=== PATIENT | female | born 1960 | race Caucasian/White ===

== ENCOUNTER 2017-07-07 12:05 | Emergency (ER) | payer OTHER ==
[~2017-07-07] VITALS: Ht 154.9 cm; Wt 98.4 kg
[2017-07-07 12:09] VITALS: BP_SYST 138
[2017-07-07] MEDS ORDERED: SITA100T7 PO (12:27)
[2017-07-07] MEDS ORDERED: DEXL60CA3 PO (12:27)
[2017-07-07] MEDS ORDERED: CLOP75TA2 PO (12:27)
[2017-07-07] MEDS ORDERED: ROSU40TA PO (12:27)
[2017-07-07] MEDS ORDERED: LORA10TA7 PO (12:27)
[2017-07-07] MEDS ORDERED: METF-510 PO (12:27)
[2017-07-07] MEDS ORDERED: ESCI20TA PO (12:27)
[2017-07-07] MEDS ORDERED: LISI-600 PO (12:27)
[2017-07-07] MEDS ORDERED: AMIT100T2 PO (12:27)
[2017-07-07] MEDS ORDERED: GABA-531 PO (12:27)
[2017-07-07] MEDS ORDERED: IMI50 PO (12:27)
[2017-07-07] MEDS ORDERED: OXYB5TAB11 PO (12:27)
[2017-07-07] MEDS ORDERED: NIFE60TA7 PO (12:27)
[2017-07-07] MEDS ORDERED: BUSP10TA3 PO (12:27)
[2017-07-07] MEDS ORDERED: IBUP-1480 PO (12:27)
[2017-07-07] MEDS ORDERED: ASPI-862 PO (12:27)
[2017-07-07] MEDS ORDERED: MORPHINE 4 MG/ML INJ. SYRINGE IVP ONE (13:00)
[2017-07-07 13:11] LABS: BASOPHILS # (AUTO) 0.1 K/uL (0.0-0.2); BASOPHILS % (AUTO) 0.8 % (0.0-2.0); EOSINOPHILS # (AUTO) 0.7 K/uL (0.0-0.4); EOSINOPHILS % (AUTO) 5.7 % (0.0-4.0); HEMATOCRIT 33.9 % (36-48); HEMOGLOBIN 11.1 g/dL (12.0-16.0); LYMPHOCYTES # (AUTO) 3.8 K/uL (1.0-5.5); LYMPHOCYTES % (AUTO) 32.1 % (20.5-51.5); MEAN CORPUSCULAR HEMOGLOBIN 27 pg (27-31); MEAN CORPUSCULAR HGB CONC 33 % (32-36); MEAN CORPUSCULAR VOLUME 82 fL (79.0-98.0); MONOCYTES # (AUTO) 0.8 K/uL (0.0-1.0); MONOCYTES % (AUTO) 6.7 % (1.7-9.3); NEUTROPHILS # (AUTO) 6.5 K/uL (1.8-7.7); NEUTROPHILS % (AUTO) 54.7 % (40.0-70.0); PLATELET COUNT (AUTO) 400 K/uL (130-430); RED BLOOD CELL COUNT(AUTO) 4.15 MIL/uL (4.2-6.2); RED CELL DISTRIBUTION WIDTH 14.4 % (9.0-15.0)
[2017-07-07 13:13] LABS: WHITE BLOOD COUNT (AUTO) 11.9 K/uL (4.8-10.8)
[2017-07-07 13:16] LABS: CALCIUM 9.5 mg/dL (8.4-11.0); CREATININE 0.88 mg/dL (0.55-1.30); POTASSIUM 3.6 mmol/L (3.5-5.1)
[2017-07-07 13:18] VITALS: BP_SYST 138
[2017-07-07 13:19] LABS: PROTHROMBIN TIME 10.6 SECS (9.5-12.5)
[2017-07-07 13:29] LABS: ALBUMIN 3.5 g/dL (3.4-4.8); TOTAL BILIRUBIN 0.2 mg/dL (0.0-1.0); TOTAL PROTEIN, SERUM 6.9 g/dL (6.4-8.3)
== END 2017-07-07 13:18 | disposition short-term general hospital (02) ==
LOC: SED 12:05
DX: I63.9 Cerebral infarction, unspecified (principal); R51 Headache; E11.9 Type 2 diabetes mellitus without complications; I10 Essential (primary) hypertension; Z91.012 Allergy to eggs; Z91.040 Latex allergy status; Z79.82 Long term (current) use of aspirin; Z79.84 Long term (current) use of oral hypoglycemic drugs; Z79.899 Other long term (current) drug therapy
CPT/HCPCS: 36415; 70450; 71010; 80053; 82550; 84484; 85025; 85610; 85730; 93005; 96374; 99285; J2270

== ENCOUNTER 2018-06-08 10:28 | Emergency (ER) | payer OTHER ==
[~2018-06-08] VITALS: Ht 162.6 cm; Wt 95.3 kg
[~2018-06-08 10:28] MED LIST: AMIT100T2 PO; ASPI-862 PO; BUSP10TA3 PO; CLOP75TA2 PO; DEXL60CA3 PO; ESCI20TA PO; GABA-531 PO; IBUP-1480 PO; IMI50 PO; LISI-600 PO; LORA10TA7 PO; METF-510 PO; NIFE60TA7 PO; OXYB5TAB11 PO; ROSU40TA PO; SITA100T7 PO
[2018-06-08 10:40] VITALS: BP_SYST 124
[2018-06-08] MEDS ORDERED: NACL 0.9% 1,000 ML IV ONE (11:02)
[2018-06-08] MEDS ORDERED: KETOROLAC TROMETHAMINE 30 MG VIAL IVP ONE (11:15)
[2018-06-08] MEDS ORDERED: IPRATROPIUM BROM 0.5 MG/2.5 ML VIAL.NEB (ATROVENT) IH ONE (11:15)
[2018-06-08] MEDS ORDERED: PREDNISONE 20 MG TABLET PO ONE (11:15)
[2018-06-08] MEDS ORDERED: ALBUTEROL SULFATE 0.083% 2.5 MG/3 ML VIAL.NEB IH ONE (11:15)
[2018-06-08 11:30] LABS: BILIRUBIN,URINE NEGATIVE (NEGATIVE); BLOOD, URINE 2+ (NEGATIVE); CLARITY/URINE SL HAZY (CLEAR); COLOR,URINE YELLOW (YELLOW); GLUCOSE,URINE NEGATIVE (NEGATIVE); KETONES,URINE NEGATIVE (NEGATIVE); LEUKOCYTE ESTERASE ,URINE NEGATIVE (NEGATIVE); NITRITE, URINE NEGATIVE (NEGATIVE); PROTEIN URINE TRACE (NEGATIVE); UROBILINOGEN,URINE 0.2 (0.2-1.0)
[2018-06-08 11:46] LABS: BACTERIA,URINE RARE /HPF (None Seen); WBC,URINE 0-3 /HPF (0-3)
[2018-06-08 12:10] VITALS: BP_SYST 113
== END 2018-06-08 12:09 | disposition home or self-care (01) ==
LOC: SED 10:28
DX: M54.5 Low back pain (principal); J45.909 Unspecified asthma, uncomplicated; R11.0 Nausea; E11.9 Type 2 diabetes mellitus without complications; I10 Essential (primary) hypertension; Z86.73 Personal history of transient ischemic attack (TIA), and cerebral infarction without residual deficits; Z91.012 Allergy to eggs; Z91.040 Latex allergy status; Z79.82 Long term (current) use of aspirin; Z79.899 Other long term (current) drug therapy
CPT/HCPCS: 81000; 94640; 96374; 99284; J1885; J7030; J7512; J7613

== ENCOUNTER 2020-03-31 15:56 | Inpatient (IN) | payer OTHER ==
[~2020-03-31] VITALS: Ht 154.9 cm; Wt 108.9 kg
[2020-03-31 15:56] VITALS: BP_SYST 171
[~2020-03-31 15:56] MED LIST changes: -DEXL60CA3 PO; +DEXL60CA4 PO; -IBUP-1480 PO; +IBUP-1970 PO; -NIFE60TA7 PO; +PROXL60 PO; +SITA100T11 PO; -SITA100T7 PO
--- NOTE | 2020-03-31 15:57 | NUR ---
Pt bib ACLS with c/o chest pain x4 hours. Reports high blood pressure at home. States she took nitro and lisinopril at home. Placed on manager cardiac cath, resting in bed. Will continue to monitor.
--- NOTE | 2020-03-31 16:00 | NUR ---
ER Dr. Mendenhall at bedside examining patient.
--- NOTE | 2020-03-31 16:00 | NUR ---
EKG performed at bedside, given to MD for interpretation
[2020-03-31] MEDS ORDERED: NITROGLYCERIN 1 INCH (GM) OINT. TP ONE (16:07)
[2020-03-31] MEDS ORDERED: MORPHINE 4 MG/ML INJ. SYRINGE IVP ONE (16:07)
--- NOTE | 2020-03-31 16:14 | NUR ---
Radiology at bedside, performing CXR as ordered.
[2020-03-31] MEDS ORDERED: ASPIRIN 325 MG TABLET PO ONE (16:15)
[2020-03-31] MEDS ORDERED: ENALAPRILAT DIHYDRATE 1.25 MG/ML VIAL IVP ONE (16:15)
[2020-03-31] MEDS ORDERED: TIZA4TAB11 PO (16:21)
[2020-03-31] MEDS ORDERED: ZOLP5TAB2 PO (16:21)
[2020-03-31] MEDS ORDERED: GABA-531 PO (16:21)
[2020-03-31] MEDS ORDERED: CYM30 PO (16:21)
[2020-03-31] MEDS ORDERED: ONDA4TAB5 PO (16:21)
[2020-03-31] MEDS ORDERED: METO25TA6 PO (16:21)
[2020-03-31] MEDS ORDERED: OXYB5TAB11 PO (16:21)
[2020-03-31] MEDS ORDERED: BENZ-16 PO (16:21)
[2020-03-31] MEDS ORDERED: MIRT7.5T11 PO (16:21)
--- NOTE | 2020-03-31 16:25 | NUR ---
Lab at bedside collecting blood samples
--- NOTE | 2020-03-31 16:30 | NUR ---
ASA, Enalapril, Nitro paste and Morphine given as ordered by MD, will re-assess
--- NOTE | 2020-03-31 16:30 | NUR ---
Medication reconciliation completed with information provided by PT. Any prior medication reconciliation on file was reviewed and corrected.
[2020-03-31] MEDS ORDERED: ENALAPRILAT DIHYDRATE 1.25 MG/ML VIAL ONE (16:37)
[2020-03-31 16:42] LABS: BASOPHILS # (AUTO) 0.1 K/uL (0.0-0.2); BASOPHILS % (AUTO) 0.7 % (0.0-2.0); EOSINOPHILS # (AUTO) 0.5 K/uL (0.0-0.4); EOSINOPHILS % (AUTO) 4.8 % (0.0-4.0); HEMATOCRIT 40.9 % (36-48); LYMPHOCYTES # (AUTO) 3.8 K/uL (1.0-5.5); LYMPHOCYTES % (AUTO) 37.2 % (20.5-51.5); MEAN CORPUSCULAR HEMOGLOBIN 31 pg (27-31); MEAN CORPUSCULAR HGB CONC 34 % (32-36); MEAN CORPUSCULAR VOLUME 90 fL (79.0-98.0); MONOCYTES # (AUTO) 0.6 K/uL (0.0-1.0); MONOCYTES % (AUTO) 6.2 % (1.7-9.3); NEUTROPHILS # (AUTO) 5.3 K/uL (1.8-7.7); NEUTROPHILS % (AUTO) 51.1 % (40.0-70.0); PLATELET COUNT (AUTO) 336 K/uL (130-430); RED BLOOD CELL COUNT(AUTO) 4.56 MIL/uL (4.2-6.2); RED CELL DISTRIBUTION WIDTH 12.9 % (9.0-15.0); WHITE BLOOD COUNT (AUTO) 10.3 K/uL (4.8-10.8)
--- NOTE | 2020-03-31 16:45 | NUR ---
Pt belongings inventoried with patient at bedside, documented in chart
[2020-03-31 16:47] LABS: CALCIUM 8.5 mg/dL (8.4-11.0); CREATININE 0.77 mg/dL (0.55-1.30); POTASSIUM 3.2 mmol/L (3.5-5.1)
[2020-03-31 16:52] LABS: ALBUMIN 3.2 g/dL (3.4-4.8); TOTAL BILIRUBIN 0.2 mg/dL (0.0-1.0)
[2020-03-31] MEDS ORDERED: CEPH-568 PO (17:21)
--- NOTE | 2020-03-31 17:30 | NUR ---
Patient will be admitted to care of Dr. Hughes. Admitted to Tele unit. Will go to room 107B. Belongings list completed. Complete and up to date summary report printed. SBAR report to be given at bedside with opportunity for questions.
--- NOTE | 2020-03-31 17:37 | NUR ---
ADMISSION NOTE Received patient from ER via mary, received report from Rosey CEBALLOS. Patient admitted with diagnosis of chest pain. Patient oriented to hospital routine, call light, toileting and safety-patient verbalized understanding.
[2020-03-31] MEDS ORDERED: POTASSIUM CHLORIDE 20 MEQ TAB.PRT.SR PO ONE (17:45)
[2020-03-31 17:50] VITALS: BP_SYST 127
[2020-03-31] MEDS ORDERED: POTASSIUM CHLORIDE 20 MEQ TAB.PRT.SR ONE (17:50)
[2020-03-31] MEDS ORDERED: cloNIDine HCL 0.1 MG TABLET PO ONE (18:00)
[2020-03-31] MEDS ORDERED: cloNIDine HCL 0.1 MG TABLET PO PRN (18:15)
[2020-03-31] MEDS ORDERED: ONDANSETRON 4 MG ODT TAB PO PRN (18:15)
[2020-03-31] MEDS ORDERED: SUMAtriptan SUCCINATE 50 MG TABLET PO PRN (18:15)
[2020-03-31] MEDS ORDERED: DEXTROSE 50% JECT 50 ML DISP.SYRIN IVP PRN (18:30)
[2020-03-31] MEDS ORDERED: INSULIN REGULAR, HUMAN 100 UNITS/ML, 10 ML VIAL (humuLIN R) SUBCUT PRN (18:30)
[2020-03-31] MEDS ORDERED: PANTOPRAZOLE SODIUM 40 MG TAB PO ONE (18:45)
[2020-03-31] MEDS ORDERED: NITROGLYCERIN 0.4 MG TAB.SUBL SL PRN (18:45)
--- NOTE | 2020-03-31 18:49 | NUR ---
RN note patient resting in bed, alert and oriented, educated vibration technician light system and plan of care, patient verbalized understanding, no signs of distress at this time, tolerating well on room air, no needs addressed at this time, brake armed, two side rails up, bed alarm on, call light within reach, fall/safety and aspiration precautions in place.will endorse care to shiftman nurse, need urine sample to be sent to lab. Dr Hughes saw patient.
--- NOTE | 2020-03-31 19:25 | NUR ---
RECEIVED REPORT FROM 7AM RN. PATIENT AAOX4, SITTING IN BED W/ LEGS DANGLING, SKIN W/D TO TOUCH, L AC IV HL, 20G. URINE NEEDED FOR U/A ORDER, PT VERBALIZED UNDERSTANDING. CALM/ PLEASANT, NAD NOTED.
[2020-03-31 20:00] VITALS: BP_SYST 135
[2020-03-31] MEDS: ATORVASTATIN 20 MG TABLET PO SCH (20:53)
[2020-03-31] MEDS: NIFEDIPINE 30 MG TAB.ER.24 PO SCH (20:54)
[2020-03-31] MEDS: METOPROLOL TARTRATE 25 MG TABLET PO SCH (20:56)
[2020-03-31] MEDS: POTASSIUM CHLORIDE 20 MEQ TAB.PRT.SR PO SCH (20:56)
[2020-03-31] MEDS ORDERED: MIRTAZAPINE 15 MG TABLET PO SCH (21:00)
[2020-03-31] MEDS ORDERED: GABAPENTIN 300 MG CAPSULE PO SCH (21:00)
[2020-03-31] MEDS ORDERED: MIRTAZAPINE PO SCH (21:00)
--- NOTE | 2020-03-31 21:05 | NUR ---
MEDICATED FOR H/A 5/10 W/ IMITREX 50 MG PO.
--- NOTE | 2020-03-31 21:30 | NUR ---
MED PASS DONE. MED REVIEW AND TEACHING DONE. Pt BECAME UPSET STATING SOME MEDS WERE THE WRONG DOSAGE AND TIME. DR PIMENTEL CALLED BY LAW ENFORCEMENT DIRECTOR JISHA, REGARDING PT MEDS. IN ROOM, Pt READ OF HER MEDS LIST, EXPLAINING DOSAGE AND TIME DIFFERENCES. Pt. ASKED IF SHE WOULD LIKE FOR ME TO REVIEW THE LIST WITH DR. PIMENTEL WHEN HE CALLS, Pt BECAME UPSET, REFUSED STATING "NEVER MIND, MY DAUGHTER IS A PA, SHE WILL FIX IT TOMORROW."
[2020-03-31] MEDS ORDERED: GABAPENTIN 300 MG CAPSULE ONE (21:56)
[2020-03-31] MEDS ORDERED: GABAPENTIN 300 MG CAPSULE PO ONE (22:00)
[2020-03-31] MEDS: AMITRIPTYLINE HCL 25 MG TABLET (ELAVIL) PO SCH (22:07)
[2020-03-31] MEDS: ZOLPIDEM TARTRATE 5 MG TABLET PO PRN (22:07)
--- NOTE | 2020-03-31 22:13 | NUR ---
CONSULT: CONSULT CALLED FOR DR. TINAJERO I SPOKE WITH MEL ARTEAGA REASON FOR CONSULT: CHEST PAIN REQUESTING CONSULT: DR. PIMENTEL PEG DRIVER PHONE NUMBER: [phone]
--- NOTE | 2020-03-31 22:20 | NUR ---
DR PIMENTEL CALLED, CHANGE OF ORDERS DONE AND CARRIED OUT- Pt. GIVEN ELAVIL 100MG PO AT HS, AND GABAPENTIN CHANGED TO 600 MG PO BID, PATIENT TAKES AT HOME. MD AWARE OF PATIENT MOOD SWINGS, WILL F/U IN AM WITH HER. H/A PAIN MED EFFECTIVE- PT VERBALIZED RELIEF FROM H/A, 01/10, STATING "YES I AM BETTER". OCCUPATIONAL HEALTH RN AWARE OF PATIENT BEING UPSET REGARDING MED DIFFERENCES, AND SPOKE WITH PATIENT TO ASSESS HER STATE OF BEING, HER ASSIGNED NURSE GAVE CORRECTED MEDS, Pt. STATED "EVERYTHING IS OK".
[2020-04-01] VITALS: BP_SYST 131
--- NOTE | 2020-04-01 01:30 | NUR ---
ON ROUNDS PATIENT ASLEEP, SNORING. NAD NOTED.
--- NOTE | 2020-04-01 04:30 | NUR ---
ON ROUNDS PATIENT ASLEEP, CHANGE IN SELF POSITION, SNORING. NAD NOTED.
[2020-04-01 06:25] LABS: BASOPHILS # (AUTO) 0.1 K/uL (0.0-0.2); BASOPHILS % (AUTO) 0.8 % (0.0-2.0); EOSINOPHILS # (AUTO) 0.5 K/uL (0.0-0.4); EOSINOPHILS % (AUTO) 4.9 % (0.0-4.0); HEMATOCRIT 41.6 % (36-48); HEMOGLOBIN 14.3 g/dL (12.0-16.0); LYMPHOCYTES # (AUTO) 3.4 K/uL (1.0-5.5); LYMPHOCYTES % (AUTO) 36.4 % (20.5-51.5); MEAN CORPUSCULAR HEMOGLOBIN 31 pg (27-31); MEAN CORPUSCULAR HGB CONC 34 % (32-36); MEAN CORPUSCULAR VOLUME 91 fL (79.0-98.0); MONOCYTES # (AUTO) 0.7 K/uL (0.0-1.0); MONOCYTES % (AUTO) 7.1 % (1.7-9.3); NEUTROPHILS # (AUTO) 4.8 K/uL (1.8-7.7); NEUTROPHILS % (AUTO) 50.8 % (40.0-70.0); PLATELET COUNT (AUTO) 316 K/uL (130-430); PROTHROMBIN TIME 10.5 SECS (9.5-12.5); RED BLOOD CELL COUNT(AUTO) 4.59 MIL/uL (4.2-6.2); RED CELL DISTRIBUTION WIDTH 13.1 % (9.0-15.0); WHITE BLOOD COUNT (AUTO) 9.4 K/uL (4.8-10.8)
[2020-04-01 07:09] LABS: ALANINE AMINOTRANSFERASE 34 U/L (12-78); ALBUMIN 3.1 g/dL (3.4-4.8); ANION GAP 6 (5-15); ASPARTATE AMINOTRANSFERASE 20 U/L (10-37); CHLORIDE 100 mmol/L (98-107); CREATININE 0.63 mg/dL (0.55-1.30); FREE T4 (FREE THYROXINE) 0.9 ng/dl (0.8-1.5); GLUCOSE 145 mg/dL (70-99); POTASSIUM 3.7 mmol/L (3.5-5.1); SODIUM SERUM 136 mmol/L (136-145); THYROID STIMULATING HORMONE 1.92 uIu/mL (0.36-3.74); TOTAL BILIRUBIN 0.2 mg/dL (0.0-1.0); UREA NITROGEN, BLOOD 4 mg/dL (8-21)
--- NOTE | 2020-04-01 07:25 | NUR ---
BS DONE = 127 MG/DL. REPORT TO CARRIE CEBALLOS. Pt AAOX4, NAD NOTED.
[2020-04-01 07:33] LABS: GFR AFRICAN AMERICAN 124 mL/min (>90)
[2020-04-01 07:45] VITALS: BP_SYST 158
--- NOTE | 2020-04-01 07:45 | NUR ---
INITIAL ROUNDS Received pt AAOx4, no s/s resp distress, no c/o chest pain or chest pressure, no c/o pain or discomfort. Plan of care for the day reviewed with pt-pt verbalized her understanding. Pain management, disease process, skin and safety discussed-teach back done. Call light within reach.
[2020-04-01] MEDS ORDERED: AMITRIPTYLINE HCL 25 MG TABLET (ELAVIL) PO SCH (09:00)
[2020-04-01] MEDS ORDERED: NON-FORMULARY MEDICATION (Dexlansoprazole (Dexilant) 60 MG) PO SCH (09:00)
[2020-04-01] MEDS ORDERED: tiZANidine HCL 4 MG TABLET PO SCH (09:00)
[2020-04-01] MEDS: CLOPIDOGREL BISULFATE 75 MG TABLET PO SCH (09:26)
[2020-04-01] MEDS: LORATADINE 10 MG TABLET PO SCH (09:26)
[2020-04-01] MEDS: PANTOPRAZOLE SODIUM 40 MG TAB PO SCH (09:26)
[2020-04-01] MEDS: GABAPENTIN 300 MG CAPSULE PO SCH ×2 (09:28→21:44)
[2020-04-01] MEDS: METOPROLOL TARTRATE 25 MG TABLET PO SCH ×2 (09:29→21:43)
[2020-04-01] MEDS: DULoxetine HCL 30 MG CAPSULE.DR (CYMBALTA) PO SCH (09:29)
[2020-04-01] MEDS: POTASSIUM CHLORIDE 20 MEQ TAB.PRT.SR PO SCH ×2 (09:31→22:07)
[2020-04-01] MEDS: LISINOPRIL 20 MG TABLET PO SCH (09:32)
[2020-04-01] MEDS: OXYBUTYNIN CHLORIDE 5 MG TABLET PO SCH (09:37)
--- NOTE | 2020-04-01 10:40 | NUR ---
SUDHIR/ Pt sitting up in bed watching television, no c/o chest pain or chest pressure-pt c/o "tinkling in my fingertips of my left hand"-Dr. Oleary here and informed. Pt given fresh ice water. Needs met, call light within reach.
[2020-04-01 12:00] VITALS: BP_SYST 146
[2020-04-01] MEDS: ASPIRIN 81 MG TABLET(ECOTRIN) PO SCH (12:53)
[2020-04-01 15:18] LABS: BILIRUBIN,URINE NEGATIVE (NEGATIVE); BLOOD, URINE 2+ (NEGATIVE); CLARITY/URINE CLEAR (CLEAR); COLOR,URINE YELLOW (YELLOW); GLUCOSE,URINE NEGATIVE (NEGATIVE); KETONES,URINE NEGATIVE (NEGATIVE); LEUKOCYTE ESTERASE ,URINE NEGATIVE (NEGATIVE); NITRITE, URINE NEGATIVE (NEGATIVE); PH,URINE 6.5 (5.0-8.0); PROTEIN URINE 1+ (NEGATIVE); UROBILINOGEN,URINE 0.2 (0.2-1.0)
[2020-04-01] MEDS ORDERED: BISACODYL 5 MG TABLET.DR (DULCOLAX) PO PRN (15:30)
[2020-04-01] MEDS ORDERED: MIRTAZAPINE 15 MG TABLET PO ONE (15:30)
[2020-04-01] MEDS ORDERED: DOCUSATE SODIUM 250 MG CAPSULE PO ONE (15:30)
[2020-04-01 15:39] LABS: BACTERIA,URINE FEW /HPF (None Seen); MUCUS,URINE None Seen /LPF (None Seen); RBC,URINE NONE SEEN /HPF (0-3); WBC,URINE 0-3 /HPF (0-3)
--- NOTE | 2020-04-01 15:47 | NUR ---
ROUNDS/ Pt resting quietly in bed with no s/s resp distress, no c/o chest pain or chest pressure, no c/o pain or discomfort. Pt seen by Dr. Ramey aware of the changes pt requested regarding her home medications and request for Colace for a bowel movement. Needs met, call light within reach.
[2020-04-01 16:36] VITALS: BP_SYST 150
--- NOTE | 2020-04-01 16:57 | NUR ---
Dietitian Recommendations *Recommend [facility] carb-45 gm, Cardiac diet. SS, RD Please refer to Nutrition Assessment for details. Addendum: 04/01/20 at [address] Amended: Links added.
--- NOTE | 2020-04-01 18:30 | NUR ---
CLOSING NOTE Pt sitting up in bed with no s/s resp distress, no c/o chest pain or chest pressure, no c/o pain or discomfort. No further c/o tingling in her fingertips. Needs met, call light within reach.
--- NOTE | 2020-04-01 19:30 | NUR ---
RECEIVED REPORT ON PATIENT FROM SHARON CEBALLOS. PT AAOX4, ON THE PHONE AND WATCHING TV. NAD NOTED.
[2020-04-01 20:00] VITALS: BP_SYST 142
[2020-04-01] MEDS: DOCUSATE SODIUM 250 MG CAPSULE PO SCH (21:42)
[2020-04-01] MEDS: ATORVASTATIN 20 MG TABLET PO SCH (21:42)
[2020-04-01] MEDS: NIFEDIPINE 30 MG TAB.ER.24 PO SCH (21:43)
[2020-04-01] MEDS: MIRTAZAPINE 15 MG TABLET PO SCH (21:44)
[2020-04-01] MEDS: NITROFURANTOIN MONOHYD/M-CRYST 100 MG CAPSULE PO SCH (22:07)
[2020-04-01] MEDS: AMITRIPTYLINE HCL 25 MG TABLET (ELAVIL) PO SCH (22:07)
[2020-04-01] MEDS: ZOLPIDEM TARTRATE 5 MG TABLET PO PRN (22:07)
--- NOTE | 2020-04-01 22:20 | NUR ---
MED PASS DONE, REVIEW OF MEDS AND MED TEACHING DONE WITH PATIENT. PATIENT REQUESTED AMBIEN FOR SLEEP. BS DONE = 95 MG /DL. VOICES NO C/O PAIN OR DISCOMFORT.
[2020-04-02 00:48] VITALS: BP_SYST 153
--- NOTE | 2020-04-02 01:19 | NUR ---
ON ROUNDS PATIENT ASLEEP, VOICED NO C/O PAIN OR DISCOMFORT. IN NAD.
--- NOTE | 2020-04-02 04:00 | NUR ---
ON ROUNDS PATIENT ASLEEP, VOICED NO C/O PAIN OR DISCOMFORT. IN NAD.
[2020-04-02 06:36] LABS: CHOLESTEROL 112 mg/dL (<200); HDL CHOLESTEROL 41 mg/dL (>55); LDL CHOLESTEROL 39 mg/dL (<100); TRIGLYCERIDES 227 mg/dL (30-150)
--- NOTE | 2020-04-02 07:05 | NUR ---
BS DONE = 136 MG/DL. REPORT SHAKIR 0700 RN SHARON.
[2020-04-02 07:58] VITALS: BP_SYST 171
--- NOTE | 2020-04-02 07:58 | NUR ---
INITIAL ROUNDS Received pt AAOx4, no s/s resp distress, no c/o chest pain or chest pressure, no c/o pain or discomfort. Plan of care for the day reviewed with pt-pt verbalized her understanding. Pt wants to talk to Dr. Oleary about her ECHO results-will inform MD. Pain management, disease process, skin and safety discussed-teach back done. Call light within reach.
[2020-04-02] MEDS: NITROFURANTOIN MONOHYD/M-CRYST 100 MG CAPSULE PO SCH (09:05)
[2020-04-02] MEDS: POTASSIUM CHLORIDE 20 MEQ TAB.PRT.SR PO SCH (09:06)
[2020-04-02] MEDS: CLOPIDOGREL BISULFATE 75 MG TABLET PO SCH (09:06)
[2020-04-02] MEDS: LISINOPRIL 20 MG TABLET PO SCH (09:06)
[2020-04-02] MEDS: OXYBUTYNIN CHLORIDE 5 MG TABLET PO SCH (09:07)
[2020-04-02] MEDS: LORATADINE 10 MG TABLET PO SCH (09:07)
[2020-04-02] MEDS: DULoxetine HCL 30 MG CAPSULE.DR (CYMBALTA) PO SCH (09:07)
[2020-04-02] MEDS: ASPIRIN 81 MG TABLET(ECOTRIN) PO SCH (09:07)
[2020-04-02] MEDS: GABAPENTIN 300 MG CAPSULE PO SCH (09:08)
[2020-04-02] MEDS: PANTOPRAZOLE SODIUM 40 MG TAB PO SCH (09:08)
[2020-04-02] MEDS: MIRTAZAPINE 15 MG TABLET PO SCH (09:08)
[2020-04-02] MEDS: METOPROLOL TARTRATE 25 MG TABLET PO SCH (09:08)
[2020-04-02] MEDS: DOCUSATE SODIUM 250 MG CAPSULE PO SCH (09:11)
--- NOTE | 2020-04-02 10:20 | NUR ---
BP MED DOCUMENTATION HAD TO UNDO THE SCANNED MEDICATIONS LOPRESSOR AND LISINOPRIL TO PUT IN THE CORRECT HEART RATE OF 73, ACCIDENTLY PUT IN RESP RATE OF 18.
[2020-04-02 12:00] VITALS: BP_SYST 163
[2020-04-02] MEDS ORDERED: CAT.1 PO (13:41)
[2020-04-02] MEDS ORDERED: NITSL SL (13:41)
[2020-04-02] MEDS ORDERED: LISI-600 PO (13:45)
[2020-04-02 14:19] VITALS: BP_SYST 153
--- NOTE | 2020-04-02 14:40 | NUR ---
PATIENT DISCHARGED HOME Patient given medication reconciliation form and D/C instructions. Exit Care on Chest Pain, Nitroglycerin and Clonidine explained and provided to patient. Patient verbalized her understanding. MD discussed with patient the results and treatment provided. Ambulatory with steady gait for discharge to home. Patient in stable condition, ID band removed. IV catheter removed, intact and dressing applied, no active bleeding. Rx of Clonidine, Nitroglycerin, & Lisinopril via E-Rx given. Patient educated on pain management. All belongings sent with patient.Patient left floor ambulatory to private vehicle in no distress.
[2020-04-02] MEDS ORDERED: tiZANidine HCL 4 MG TABLET PO PRN (15:40)
== END 2020-04-02 14:40 | disposition home or self-care (01) | DRG 311 ==
LOC: SED 15:56 → STU 17:19
PROVIDERS: ADMIT Internal Medicine; ATTEND Internal Medicine
DX: I20.9 Angina pectoris, unspecified (principal); Z68.42 Body mass index [BMI] 45.0-49.9, adult; E87.1 Hypo-osmolality and hyponatremia; E11.40 Type 2 diabetes mellitus with diabetic neuropathy, unspecified; E78.5 Hyperlipidemia, unspecified; F41.9 Anxiety disorder, unspecified; E87.6 Hypokalemia; K59.00 Constipation, unspecified; G47.00 Insomnia, unspecified; F17.210 Nicotine dependence, cigarettes, uncomplicated; J45.909 Unspecified asthma, uncomplicated; E66.01 Morbid (severe) obesity due to excess calories; K21.9 Gastro-esophageal reflux disease without esophagitis; F32.9 Major depressive disorder, single episode, unspecified; I10 Essential (primary) hypertension; Z82.3 Family history of stroke; Z86.73 Personal history of transient ischemic attack (TIA), and cerebral infarction without residual deficits; Z91.012 Allergy to eggs; Z91.040 Latex allergy status; Z79.899 Other long term (current) drug therapy; Z79.84 Long term (current) use of oral hypoglycemic drugs; Z82.49 Family history of ischemic heart disease and other diseases of the circulatory system; Z83.3 Family history of diabetes mellitus
CPT/HCPCS: 36415; 71045; 71046-TC; 80053; 80061; 81000-TC; 82962; 83036; 83735-TC; 83880; 84439; 84443-TC; 84484; 85025; 85379; 85610-TC; 85730-TC; 93005; 93306; 96374; 96375; 99291; G0378; J1815; J2270

== ENCOUNTER 2020-08-07 10:53 | Emergency (ER) | payer OTHER ==
[~2020-08-07] VITALS: Ht 154.9 cm; Wt 106.1 kg
[~2020-08-07 10:53] MED LIST changes: -ASPI-862 PO; +BENZ-16 PO; -BUSP10TA3 PO; +CAT.1 PO; +CEPH-568 PO; -CLOP75TA2 PO; +CYM30 PO; -ESCI20TA PO; -IBUP-1970 PO; +METO25TA6 PO; +MIRT7.5T11 PO; +NITSL SL; +ONDA4TAB5 PO; +TIZA4TAB11 PO; +ZOLP5TAB2 PO
[2020-08-07 11:01] VITALS: BP_SYST 152
--- NOTE | 2020-08-07 11:05 | NUR ---
Patient to ER bed 6 to gown for evaluation. Side rails up. Report given to TUCKER James.
--- NOTE | 2020-08-07 11:10 | NUR ---
ER at bedside examining patient.
--- NOTE | 2020-08-07 11:11 | NUR ---
Patient presented to ER C/O lower back pain. Patient A&Ox4, ambulatory to ER, afebrile, skin pink and warm, pain 7/10, nausea present, denies V/D. Patient states she had sudden onset lower back pain x1 day, increasesd pain this morning, hx urinary incontinence.
--- NOTE | 2020-08-07 11:12 | NUR ---
Urine specimen collected and analyzed in ER. Results given to ER .
[2020-08-07] MEDS ORDERED: KETOROLAC TROMETHAMINE 60 MG/2 ML VIAL IM ONE (11:15)
--- NOTE | 2020-08-07 12:11 | NUR ---
Patient given written and verbal discharge instructions and verbalizes understanding. ER MD discussed with patient the results and treatment provided. Patient in stable condition. ID arm band removed. Rx of wiliam maharaj given. Patient educated on pain management and to follow up with PMD. Pain Scale 0/10. Opportunity for questions provided and answered. Medication side effect fact sheet provided.
[2020-08-07 12:12] VITALS: BP_SYST 152
== END 2020-08-07 12:11 | disposition home or self-care (01) ==
LOC: SED 10:53
DX: M54.5 Low back pain (principal); N39.0 Urinary tract infection, site not specified; I10 Essential (primary) hypertension; E11.9 Type 2 diabetes mellitus without complications; J44.9 Chronic obstructive pulmonary disease, unspecified; Z86.79 Personal history of other diseases of the circulatory system; Z79.899 Other long term (current) drug therapy; Z91.040 Latex allergy status; Z91.012 Allergy to eggs
CPT/HCPCS: 74018; 81002; 96372; 99283; J1885; J7030

== ENCOUNTER 2020-09-30 12:36 | Inpatient (IN) | payer OTHER, MEDICAID ==
[~2020-09-30] VITALS: Ht 154.9 cm; Wt 104.3 kg
[~2020-09-30 12:36] MED LIST changes: -OXYB5TAB11 PO; +OXYB5TAB18 PO
--- NOTE | 2020-09-30 12:40 | NUR ---
pt to room 4 placed in [facility] with gown on. Monitored and EKG done.
--- NOTE | 2020-09-30 12:55 | NUR ---
ER Dr. Goetz at bedside examining patient.
[2020-09-30] MEDS ORDERED: NITROGLYCERIN 1 INCH (GM) OINT. TP ONE (13:00)
[2020-09-30 13:09] VITALS: BP_SYST 153
--- NOTE | 2020-09-30 13:16 | NUR ---
Pt in [facility] with side rails up. Pt being monitored. EKG done and provider aware. VSS
[2020-09-30 13:24] LABS: BASOPHILS # (AUTO) 0.1 K/uL (0.0-0.2); BASOPHILS % (AUTO) 0.9 % (0.0-2.0); EOSINOPHILS # (AUTO) 0.2 K/uL (0.0-0.4); EOSINOPHILS % (AUTO) 2.1 % (0.0-4.0); HEMATOCRIT 39.6 % (36-48); HEMOGLOBIN 13.7 g/dL (12.0-16.0); LYMPHOCYTES # (AUTO) 3.3 K/uL (1.0-5.5); LYMPHOCYTES % (AUTO) 29.7 % (20.5-51.5); MEAN CORPUSCULAR HEMOGLOBIN 31 pg (27-31); MEAN CORPUSCULAR HGB CONC 35 % (32-36); MEAN CORPUSCULAR VOLUME 90 fL (79.0-98.0); MONOCYTES # (AUTO) 0.5 K/uL (0.0-1.0); MONOCYTES % (AUTO) 4.2 % (1.7-9.3); NEUTROPHILS # (AUTO) 6.9 K/uL (1.8-7.7); NEUTROPHILS % (AUTO) 63.1 % (40.0-70.0); PLATELET COUNT (AUTO) 305 K/uL (130-430); RED BLOOD CELL COUNT(AUTO) 4.41 MIL/uL (4.2-6.2); RED CELL DISTRIBUTION WIDTH 13.2 % (9.0-15.0)
--- NOTE | 2020-09-30 13:28 | NUR ---
CALM, ALERT, SR ON MONITOR. VSS. COMMUNICATES CLEARLY IN FULL COMPLETE SENTENCES. NO DISTRESS
[2020-09-30 13:47] LABS: CALCIUM 8.5 mg/dL (8.4-11.0); CREATININE 0.7 mg/dL (0.55-1.30); POTASSIUM 3.4 mmol/L (3.5-5.1)
[2020-09-30 13:54] LABS: ALBUMIN 3.3 g/dL (3.4-4.8); TOTAL BILIRUBIN 0.2 mg/dL (0.0-1.0)
[2020-09-30] MEDS ORDERED: NITROGLYCERIN 0.4 MG TAB.SUBL SL PRN ×2 (15:00→17:00)
--- NOTE | 2020-09-30 15:27 | NUR ---
ADMIT ORDERS TO [facility] [place] [facility]
[2020-09-30] MEDS ORDERED: CAT.2 PO (15:43)
[2020-09-30] MEDS ORDERED: FURO-149 PO (15:43)
--- NOTE | 2020-09-30 16:34 | NUR ---
Patient will be admitted to care of [facility]. Admitted to TELE unit. Will go to room TELE. Belongings list completed. Complete and up to date summary report printed. SBAR report to be given at bedside with opportunity for questions.
[2020-09-30 16:40] VITALS: BP_SYST 123
--- NOTE | 2020-09-30 16:40 | NUR ---
ADMISSION NOTE Received patient from ER via mary, received report from Isiah CEBALLOS. Patient admitted with diagnosis of Chest Pain. Patient oriented to hospital routine, call light, toileting and safety-patient verbalized understanding.
[2020-09-30] MEDS ORDERED: BENZONATATE 100 MG CAPSULE (TESSALON) PO ONE (17:00)
[2020-09-30] MEDS ORDERED: ONDANSETRON 4 MG ODT TAB PO PRN (17:00)
[2020-09-30] MEDS ORDERED: AMITRIPTYLINE HCL 25 MG TABLET (ELAVIL) PO ONE (17:00)
[2020-09-30] MEDS ORDERED: POTASSIUM CHLORIDE 20 MEQ TAB.PRT.SR PO ONE (17:15)
[2020-09-30] MEDS: ACETAMINOPHEN 325 MG TABLET PO PRN (17:22)
--- NOTE | 2020-09-30 17:25 | NUR ---
RN rounds patient resting in bed, awake, denies pain, no signs of distress, educated on scheduled medications uses and potential side effects, she verbalized understanding and tolerated well, blood glucose checked, no insulin coverage per MD orders, continuing to monitor patient, bed in lowest position, two side rails up, call light within reach, fall and aspiration precautions in place.
[2020-09-30] MEDS ORDERED: MIRT15TA7 PO (17:31)
[2020-09-30] MEDS ORDERED: SITA100T11 PO (17:31)
--- NOTE | 2020-09-30 17:40 | NUR ---
CONSULTATION PAGED/CALLED Reason for Consultation: [] CHEST PAIN Person Who was Notified: [] ETHAN Consulting Physician: [] DR TINAJERO Statistics Professor Specialty: [] CARDIO Ordering Physician: [] DR SINHA
--- NOTE | 2020-09-30 18:37 | NUR ---
Closing note patient resting in bed, awake, denies pain, no signs of distress, all needs met, will endorse report to NOC shift nurse, bed in lowest position, 2 side rails up, call light within reach, fall and aspiration precautions in place.
--- NOTE | 2020-09-30 19:15 | NUR ---
OPENING NOTE REPORT RECEIVED FROM DAYSHIFT NURSE. PATIENT RECEIVED SITTING UP IN BED, FINISHING UP DINNER. AOX4, NO S/S OF ACUTE DISTRESS. BREATHING EVEN AND UNLABORED. PATIENT DENIES PAIN OR SOB. CALL LIGHT WITH PATIENT, PATIENT DEMONSTRATED BACK PROPER USE. BED IS LOCKED AND AT LOWEST POSITION. WILL CONTINUE TO MONITOR .
[2020-09-30 20:00] VITALS: BP_SYST 138
[2020-09-30] MEDS: ENOXAPARIN SODIUM 40 MG/0.4 ML SYRINGE SUBCUT SCH (20:00)
[2020-09-30] MEDS: METOPROLOL TARTRATE 25 MG TABLET PO SCH (20:01)
[2020-09-30] MEDS: NIFEdipine 30 MG TAB.ER.24 PO SCH (20:01)
[2020-09-30] MEDS: GABAPENTIN 300 MG CAPSULE PO SCH (20:01)
[2020-09-30] MEDS: MIRTAZAPINE 15 MG TABLET PO SCH (20:03)
[2020-09-30] MEDS: cloNIDine HCL 0.2 MG TABLET PO SCH (20:04)
[2020-09-30] MEDS: lisinopriL 20 MG TABLET PO SCH (20:04)
[2020-09-30] MEDS: ZOLPIDEM TARTRATE 5 MG TABLET PO PRN (20:10)
--- NOTE | 2020-09-30 21:00 | NUR ---
ROUNDS PATIENT IN BED, AWAKE, WATCHING VIDEOS ON HER PHONE. NO SIGNS OF DISCOMFORT NOTED. CHEST RISE AND FALL EVEN BILATERALLY. CALL LIGHT WITH PATIENT. WILL CONTINUE TO MONITOR.
--- NOTE | 2020-09-30 23:00 | NUR ---
ROUNDS/VOID PATIENT WALKING BACK FROM BATHROOM, PATIENT VOIDED. PATIENT TOLERATED WELL. NO S/S OF ACUTE DISTRESS NOTED. BREATHING EVEN AND UNLABORED. ALL NEEDS MET. CALL LIGHT WITH PATIENT. WILL CONTINUE TO MONITOR.
[2020-10-01] VITALS: BP_SYST 142
--- NOTE | 2020-10-01 01:30 | NUR ---
HEADACHE PATIENT COMPLAINED OF HEADACHE, PRN MEDICATION ADMINISTERED. WILL CONTINUE TO MONITOR AND REASSESS.
[2020-10-01] MEDS: ACETAMINOPHEN 325 MG TABLET PO PRN (01:43)
--- NOTE | 2020-10-01 03:30 | NUR ---
ROUNDS PATIENT IN BED SLEEPING. ALL NEEDS MET. CALL LIGHT WITH PATIENT. WILL CONTINUE TO MONITOR.
[2020-10-01] MEDS: INSULIN REGULAR, HUMAN 100 UNITS/ML, 10 ML VIAL (humuLIN R) SUBCUT PRN ×3 (06:06→20:32)
--- NOTE | 2020-10-01 06:38 | NUR ---
CLOSING NOTE PATIENT IN BED, RESTING, NO S/S OF ACUTE DISTRESS NOTED. BREATHING EVEN AND UNLABORED. IV SITE IS PATENT, NO SIGNS OF INFILTRATION OR INFECTION NOTED. SKIN WARM AND DRY TO TOUCH, NO S/S OF HYPOGLYCEMIA NOTED. ALL NEEDS MET THROUGHOUT SHIFT. FALL AND SAFETY PRECAUTIONS MAINTAINED THROUGHOUT SHIFT. WILL CONTINUE TO MONITOR UNTIL PATIENT CARE IS ENDORSED TO ONCOMING DAYSHIFT NURSE.
[2020-10-01 06:58] LABS: BASOPHILS % (AUTO) 0.4 % (0.0-2.0); EOSINOPHILS # (AUTO) 0.2 K/uL (0.0-0.4); EOSINOPHILS % (AUTO) 2.1 % (0.0-4.0); HEMATOCRIT 40.2 % (36-48); HEMOGLOBIN 14.1 g/dL (12.0-16.0); LYMPHOCYTES # (AUTO) 2.3 K/uL (1.0-5.5); LYMPHOCYTES % (AUTO) 22.2 % (20.5-51.5); MEAN CORPUSCULAR HEMOGLOBIN 32 pg (27-31); MEAN CORPUSCULAR HGB CONC 35 % (32-36); MEAN CORPUSCULAR VOLUME 90 fL (79.0-98.0); MONOCYTES # (AUTO) 0.6 K/uL (0.0-1.0); MONOCYTES % (AUTO) 5.8 % (1.7-9.3); NEUTROPHILS # (AUTO) 7.3 K/uL (1.8-7.7); NEUTROPHILS % (AUTO) 69.5 % (40.0-70.0); PLATELET COUNT (AUTO) 290 K/uL (130-430); RED BLOOD CELL COUNT(AUTO) 4.46 MIL/uL (4.2-6.2); RED CELL DISTRIBUTION WIDTH 12.9 % (9.0-15.0); WHITE BLOOD COUNT (AUTO) 10.6 K/uL (4.8-10.8)
[2020-10-01 07:12] LABS: ANION GAP 8 (5-15); CALCIUM 9.3 mg/dL (8.4-11.0); CHLORIDE 97 mmol/L (98-107); CREATININE 0.51 mg/dL (0.55-1.30); GLUCOSE 166 mg/dL (70-99); POTASSIUM 3.4 mmol/L (3.5-5.1); SODIUM SERUM 135 mmol/L (136-145); UREA NITROGEN, BLOOD 5 mg/dL (8-21)
--- NOTE | 2020-10-01 07:30 | NUR ---
Patient resting denies any chest pain , blood pressure is controlled , discussed safety , compliant of taking medication verbalized understanding, needs attended.
[2020-10-01 07:33] VITALS: BP_SYST 135
[2020-10-01] MEDS: ATORVASTATIN 20 MG TABLET PO SCH (08:06)
[2020-10-01] MEDS: AMITRIPTYLINE HCL 25 MG TABLET (ELAVIL) PO SCH (08:06)
[2020-10-01] MEDS: LORATADINE 10 MG TABLET PO SCH (08:06)
[2020-10-01] MEDS: PANTOPRAZOLE SODIUM 40 MG TAB PO SCH (08:07)
[2020-10-01] MEDS: METOPROLOL TARTRATE 25 MG TABLET PO SCH ×2 (08:07→20:29)
[2020-10-01] MEDS: DULoxetine HCL 30 MG CAPSULE.DR (CYMBALTA) PO SCH (08:07)
[2020-10-01] MEDS: GABAPENTIN 300 MG CAPSULE PO SCH ×2 (08:08→20:30)
[2020-10-01] MEDS: BENZONATATE 100 MG CAPSULE (TESSALON) PO SCH (08:08)
[2020-10-01] MEDS: FUROSEMIDE 40 MG TABLET PO SCH (08:08)
[2020-10-01] MEDS: lisinopriL 20 MG TABLET PO SCH ×2 (08:09→20:29)
[2020-10-01 08:13] LABS: GFR AFRICAN AMERICAN 158 mL/min (>90)
[2020-10-01] MEDS: cloNIDine HCL 0.2 MG TABLET PO SCH ×2 (09:21→20:29)
--- NOTE | 2020-10-01 10:47 | NUR ---
Ambulates to bathroom with steady gait, denies any chest pain.
--- NOTE | 2020-10-01 11:10 | NUR ---
Seen and and examined by the projection technician denies any chest pain , blood pressure controlled,
[2020-10-01 11:32] VITALS: BP_SYST 109
[2020-10-01 16:10] VITALS: BP_SYST 157
--- NOTE | 2020-10-01 17:00 | NUR ---
Seen and examined by Romulo Lott , denies any chest pain , blood pressure WNL.
[2020-10-01] MEDS ORDERED: POTASSIUM CHLORIDE 20 MEQ TAB.PRT.SR PO ONE (17:45)
--- NOTE | 2020-10-01 19:15 | NUR ---
OPENING NOTE REPORT RECEIVED FROM DAYSHIFT NURSE. PATIENT RECEIVED SITTING UP IN BED, WATCHING TV, AOX4, NO S/S OF ACUTE DISTRESS NOTED. BREATHING IS EVEN AND UNLABORED. NO COMPLAINTS OF PAIN OR SOB. IV SITE PATENT, NO SIGNS OF INFILTRATION OR INFECTION NOTED. SKIN WARM AND DRY TO TOUCH. CALL LIGHT WITH PATIENT. WILL CONTINUE TO MONITOR.
[2020-10-01 20:00] VITALS: BP_SYST 159
[2020-10-01] MEDS: MIRTAZAPINE 15 MG TABLET PO SCH (20:29)
[2020-10-01] MEDS: NIFEdipine 30 MG TAB.ER.24 PO SCH (20:30)
[2020-10-01] MEDS: ENOXAPARIN SODIUM 40 MG/0.4 ML SYRINGE SUBCUT SCH (20:30)
--- NOTE | 2020-10-01 21:00 | NUR ---
ROUNDS PATIENT IN BED, NO S/S OF ACUTE DISTRESS. ALL NEEDS MET. CALL LIGHT WITH PATIENT. WILL CONTINUE TO MONITOR.
[2020-10-01] MEDS: ZOLPIDEM TARTRATE 5 MG TABLET PO PRN (22:33)
--- NOTE | 2020-10-01 23:00 | NUR ---
SLEEPING PILL PATIENT REQUESTED FOR SLEEPING PILL AT THIS TIME, RN ADMINISTERED. ALL NEEDS MET. WILL CONTINUE TO MONITOR.
[2020-10-02] VITALS: BP_SYST 152
--- NOTE | 2020-10-02 01:00 | NUR ---
ROUNDS PATIENT IN BED, SLEEPING AT THIS TIME. NO CHANGE FROM PREVIOUS CONDITION. CALL LIGHT WITH PATIENT. WILL CONTINUE TO MONITOR.
--- NOTE | 2020-10-02 03:00 | NUR ---
ROUNDS PATIENT IN BED, SLEEPING. NO S/S OF ACUTE DISTRESS NOTED. BREATHING EVEN AND UNLABORED. ALL NEEDS MET. CALL LIGHT WITH PATIENT. WILL CONTINUE TO MONITOR.
--- NOTE | 2020-10-02 05:00 | NUR ---
ROUNDS PATIENT IN BED, SLEEPING AT THIS TIME. NO SIGNS OF DISCOMFORT NOTED. CHEST RISE AND FALL EVEN BILATERALLY. CALL LIGHT WITH PATIENT. WILL CONTINUE TO MONITOR.
--- NOTE | 2020-10-02 06:28 | NUR ---
CLOSING NOTE/ACCUCHECK PATIENT IN BED, RESTING. NO S/S OF ACUTE DISTRESS NOTED. BREATHING EVEN AND UNLABORED. IV SITE PATENT, NO SIGNS OF INFILTRATION OR INFECTION NOTED. SKIN WARM AND DRY TO TOUCH, NO S/S OF HYPOGLYCEMIA NOTED, ACCUCHECK DONE, BS 146. ALL NEEDS MET THROUGHOUT SHIFT. FALL AND SAFETY PRECAUTIONS MAINTAINED THROUGHOUT SHIFT. WILL CONTINUE TO MONITOR UNTIL PATIENT CARE IS ENDORSED TO ONCOMING DAYSHIFT NURSE.
--- NOTE | 2020-10-02 07:40 | NUR ---
OPENING NOTES: RECEIVED PATIENT FROM MEAT SELECTOR NURSE. PATIENT IS AWAKE AND ALERT x4 LAYING DOWN IN BED. PATIENT IS TOLERATING OXYGEN ON ROOM AIR WITH NO SIGNS OF DISTRESS OR SHORTNESS OF BREATH NOTED. IV SITE IS PATENT WITH NO SIGNS OF INFILTRATION NOTED. PATIENT DENIES ANY PAIN AT THE MOMENT. PATIENT IN STABLE CONDITION. SAFETY, FALL, AND ASPIRATION PRECAUTIONS ARE IN PLACE. BED LOCKED IN LOWEST POSITION WITH CALL LIGHT IN REACH. WILL CONTINUE TO MONITOR PATIENT FOR ANY CHANGES.
[2020-10-02 08:29] VITALS: BP_SYST 149
[2020-10-02] MEDS: ATORVASTATIN 20 MG TABLET PO SCH (08:31)
[2020-10-02] MEDS: DULoxetine HCL 30 MG CAPSULE.DR (CYMBALTA) PO SCH (08:32)
[2020-10-02] MEDS: GABAPENTIN 300 MG CAPSULE PO SCH (08:32)
[2020-10-02] MEDS: LORATADINE 10 MG TABLET PO SCH (08:32)
[2020-10-02] MEDS: AMITRIPTYLINE HCL 25 MG TABLET (ELAVIL) PO SCH (08:32)
[2020-10-02] MEDS: PANTOPRAZOLE SODIUM 40 MG TAB PO SCH (08:32)
[2020-10-02] MEDS: FUROSEMIDE 40 MG TABLET PO SCH (08:32)
[2020-10-02] MEDS: cloNIDine HCL 0.2 MG TABLET PO SCH (08:33)
[2020-10-02] MEDS: METOPROLOL TARTRATE 25 MG TABLET PO SCH (08:33)
[2020-10-02] MEDS: lisinopriL 20 MG TABLET PO SCH (08:34)
[2020-10-02] MEDS: BENZONATATE 100 MG CAPSULE (TESSALON) PO SCH (08:34)
--- NOTE | 2020-10-02 10:12 | NUR ---
RN ROUNDS: PATIENT IS AWAKE AND ALERT x4 LAYING DOWN IN BED. PATIENT IS TOLERATING OXYGEN ON ROOM AIR WITH NO SIGNS OF DISTRESS OR SHORTNESS OF BREATH NOTED. PATIENT DENIES ANY PAIN AT THE MOMENT. PATIENT IN STABLE CONDITION. WILL CONTINUE TO MONITOR PATIENT FOR ANY CHANGES.
--- NOTE | 2020-10-02 10:54 | NUR ---
Dietitian Recommendations *Continue [facility] diet. *Follow restrictions to food allergy. Please see Nutritional Assessment for details. JAMILAH BAIRES
[2020-10-02] MEDS: INSULIN REGULAR, HUMAN 100 UNITS/ML, 10 ML VIAL (humuLIN R) SUBCUT PRN (10:57)
[2020-10-02 11:31] VITALS: BP_SYST 146
[2020-10-02 12:01] VITALS: BP_SYST 127
--- NOTE | 2020-10-02 12:20 | NUR ---
RN ROUNDS: PATIENT IS AWAKE AND ALERT x4 LAYING DOWN IN BED. PATIENT IS TOLERATING OXYGEN ON ROOM AIR WITH NO SIGNS OF DISTRESS OR SHORTNESS OF BREATH NOTED. IV SITE IS PATENT WITH NO SIGNS OF INFILTRATION NOTED. PATIENT DENIES ANY PAIN AT THE MOMENT. PATIENT IN STABLE CONDITION. WILL CONTINUE TO MONITOR PATIENT FOR ANY CHANGES.
--- NOTE | 2020-10-02 14:25 | NUR ---
RN ROUNDS: PATIENT IS AWAKE AND ALERT x4 LAYING DOWN IN BED. PATIENT IS TOLERATING OXYGEN ON ROOM AIR WITH NO SIGNS OF DISTRESS OR SHORTNESS OF BREATH NOTED. IV SITE IS PATENT WITH NO SIGNS OF INFILTRATION NOTED. PATIENT IN STABLE CONDITION. WILL CONTINUE TO MONITOR PATIENT FOR ANY CHANGES.
[2020-10-02 16:21] VITALS: BP_SYST 127
--- NOTE | 2020-10-02 16:35 | NUR ---
D/C Patient: Patient given medication reconciliation form and D/C instructions. Exit Care provided. Patient verbalized understanding. MD discussed with patient the results and treatment provided. Ambulatory with steady gait for discharge to home. Patient in stable condition, ID band removed. IV catheter removed, intact and dressing applied, no active bleeding. List of medications to continue given to patient. Patient educated on pain management. All belongings sent with patient.
--- NOTE | 2020-10-02 17:09 | NUR ---
DISCHARGE PACKET: EVS FOUND PATIENT'S DISCHARGE PATIENT AND MEDICATION SAFETY SHEET WHEN CLEANING THE ROOM. WILL ATTEMPT TO CALL PATIENT TO SEE IF SHE CAN COME PICK IT UP.
== END 2020-10-02 16:35 | disposition home or self-care (01) | DRG 206 ==
LOC: SED 12:36 → STU 14:51
PROVIDERS: ADMIT Family Medicine; ATTEND Family Medicine
DX: M94.0 Chondrocostal junction syndrome [Tietze] (principal); E87.1 Hypo-osmolality and hyponatremia; Z68.41 Body mass index [BMI] 40.0-44.9, adult; I10 Essential (primary) hypertension; E78.5 Hyperlipidemia, unspecified; F17.210 Nicotine dependence, cigarettes, uncomplicated; E66.01 Morbid (severe) obesity due to excess calories; E11.42 Type 2 diabetes mellitus with diabetic polyneuropathy; F41.9 Anxiety disorder, unspecified; K21.9 Gastro-esophageal reflux disease without esophagitis
CPT/HCPCS: 36415; 71045; 80048; 80053; 82550-TC; 82962; 83880; 84484; 85025; 85610-TC; 85730-TC; 93005; 99285; G0378; J1650; J1815

== ENCOUNTER 2021-11-04 10:52 | Emergency (ER) | payer OTHER ==
[~2021-11-04] VITALS: Ht 157.5 cm; Wt 108.4 kg
[~2021-11-04 10:52] MED LIST changes: -CAT.1 PO; +CAT.2 PO; -CEPH-568 PO; +FURO-149 PO; -IMI50 PO; -LISI-600 PO; +LISI20TA30 PO; -METF-510 PO; +METF-518 PO; +MIRT-91 PO; -MIRT7.5T11 PO; -OXYB5TAB18 PO; -TIZA4TAB11 PO
[2021-11-04 10:55] VITALS: BP_SYST 145
--- NOTE | 2021-11-04 10:55 | NUR ---
Placed in room 4 . Placed on type casting machine operator, blood pressure machine and pulse oximeter. To gown for exam. Side rails up. Report given to TUCKER BERMUDEZ.
--- NOTE | 2021-11-04 11:07 | NUR ---
ER DR. NORTON AT THE BEDSIDE EXAMINING PT
--- NOTE | 2021-11-04 11:08 | NUR ---
Kolby ruvalcaba in ED - 11/04/21 at 1109 by [email or web address] KONSTANTIN NORTON at bedside examining patient.
--- NOTE | 2021-11-04 11:26 | NUR ---
Pt. came in to be evaluated, she accidently walked into the wall hitting her nose and face, had some nose bleeding at home resolved by arrival here, rates GUEVARA pain 5/10 but denies need for pain medication states will use OTC at home.
--- NOTE | 2021-11-04 11:35 | NUR ---
Patient given written and verbal discharge instructions and verbalizes understanding. ER MD DR. NORTON discussed with patient the results and treatment provided. Patient in stable condition. ID arm band removed. Patient educated on pain management and to follow up with PMD. Pain Scale 3/10. Opportunity for questions provided and answered. Medication side effect fact sheet provided.
[2021-11-04 11:40] VITALS: BP_SYST 123
== END 2021-11-04 11:40 | disposition home or self-care (01) ==
LOC: SED 10:52
DX: S09.93XA Unspecified injury of face, initial encounter (principal); R04.0 Epistaxis; I10 Essential (primary) hypertension; E11.9 Type 2 diabetes mellitus without complications; Z79.899 Other long term (current) drug therapy; W22.01XA Walked into wall, initial encounter; Y93.89 Activity, other specified; Y92.89 Other specified places as the place of occurrence of the external cause; Y99.8 Other external cause status
CPT/HCPCS: 99281

== ENCOUNTER 2022-05-04 14:58 | Emergency (ER) | payer OTHER ==
[~2022-05-04] VITALS: Ht 154.9 cm; Wt 101.2 kg
--- NOTE | 2022-05-04 15:00 | NUR ---
PT HAS CONTINUED TO BE STABLE, WALKING TO RESTROOM A COUPLE TIME. NO S/S OF DISTRESS. PT C/O BILATERAL LEG PAIN BEGAN YESTERDAY. PT IS DIABETIC HX
[2022-05-04 15:05] VITALS: BP_SYST 190
--- NOTE | 2022-05-04 15:05 | NUR ---
BROUGHT BACK TO BED #4, TRIAGED AND REPORT GIVEN TO KATHY
--- NOTE | 2022-05-04 15:15 | NUR ---
SING ASSESSING PT AT BEDSIDE
[2022-05-04 16:15] LABS: HEMATOCRIT 30.6 % (36-48); HEMOGLOBIN 10.6 g/dL (12.0-16.0); MEAN CORPUSCULAR HGB CONC 35 % (32-36); RED BLOOD CELL COUNT(AUTO) 3.53 MIL/uL (4.2-6.2)
[2022-05-04 16:21] LABS: CALCIUM 7.7 mg/dL (8.4-11.0); CREATININE 0.84 mg/dL (0.55-1.30); POTASSIUM 3.6 mmol/L (3.5-5.1)
[2022-05-04 16:27] LABS: ALBUMIN 3.1 g/dL (3.4-4.8)
[2022-05-04 16:32] LABS: BASOPHILS # (AUTO) 0.2 K/uL (0.0-0.2); BASOPHILS % (AUTO) 2.3 % (0.0-2.0); EOSINOPHILS # (AUTO) 0.4 K/uL (0.0-0.4); LYMPHOCYTES # (AUTO) 1.5 K/uL (1.0-5.5); LYMPHOCYTES % (AUTO) 21.8 % (20.5-51.5); MEAN CORPUSCULAR HEMOGLOBIN 30 pg (27-31); MEAN CORPUSCULAR VOLUME 87 fL (79.0-98.0); MONOCYTES # (AUTO) 0.5 K/uL (0.0-1.0); MONOCYTES % (AUTO) 6.5 % (1.7-9.3); NEUTROPHILS # (AUTO) 4.5 K/uL (1.8-7.7); NEUTROPHILS % (AUTO) 63.4 % (40.0-70.0); PLATELET COUNT (AUTO) 325 K/uL (130-430); RED CELL DISTRIBUTION WIDTH 13.4 % (9.0-15.0); WHITE BLOOD COUNT (AUTO) 7.1 K/uL (4.8-10.8)
[2022-05-04 17:09] LABS: TOTAL BILIRUBIN 0.3 mg/dL (0.0-1.0)
[2022-05-04 17:52] VITALS: BP_SYST 165
--- NOTE | 2022-05-04 17:52 | NUR ---
Patient given written and verbal discharge instructions and verbalizes understanding. ER MD discussed with patient the results and treatment provided. Patient in stable condition. ID arm band removed. Patient educated on pain management and to follow up with PMD. Pain Scale []. Opportunity for questions provided and answered. Medication side effect fact sheet provided.
== END 2022-05-04 17:52 | disposition home or self-care (01) ==
LOC: SED 14:58
DX: E13.40 Other specified diabetes mellitus with diabetic neuropathy, unspecified (principal); I10 Essential (primary) hypertension; J44.9 Chronic obstructive pulmonary disease, unspecified; Z91.040 Latex allergy status; Z91.012 Allergy to eggs; Z86.79 Personal history of other diseases of the circulatory system; Z79.899 Other long term (current) drug therapy
CPT/HCPCS: 36415; 80053; 82550; 82962; 85025; 99283